=== PATIENT | female | born 1955 | race American Indian/Alaskan Native ===

== ENCOUNTER 2020-08-17 06:54 | Emergency (ER) | payer SELFPAY ==
[2020-08-17] MEDS ORDERED: dexAMETHasone 4 MG/ML VIAL IM STA (08:56)
[2020-08-17] MEDS ORDERED: KETOROLAC 30 MG/1 ML INJ IM ONE (08:56)
--- NOTE | 2020-08-17 09:01 | Emergency Department Report ---
ED General Adult HPI - General Chief complaint: Back Pain/Injury Stated complaint: BACK PAIN Time Seen by Provider: 08/17/20 08:26 Source: patient Mode of arrival: Ambulatory Limitations: Language Barrier - History of Present Illness Initial comments: 65-year-old -Turkish female patient presents with complaints of left lower back pain radiating down her left leg today. Patient states this pain has been intermittent since that she had a fall a couple months ago. Patient states that the time she did see her doctor and had x-rays done that were negative for any abnormalities. She states she was treated with medications and her pain went away. She denies any new injuries, weakness in her legs, numbness/tingling, difficulty with ambulation, or loss of bladder/bowel control. No history of cancer per patient. She describes the pain as burning and shooting and rates it as 10/10 in severity. She denies trying any OTC medication. No other past medical history per patient. - Related Data Previous Rx's Medication Instructions Recorded Last Taken Type Diclofenac Sodium 50 mg PO TID PRN #15 tablet. 08/17/20 Unknown Rx methOCARBAMOL [Robaxin TAB] 500 mg PO BID PRN #10 tab 08/17/20 Unknown Rx Allergies Allergy/AdvReac Type Severity Reaction Status Date / Time No Known Allergies Allergy Unverified 08/17/20 07:10 ED Review of Systems ROS: Stated complaint: BACK PAIN Other details as noted in HPI Constitutional: denies: chills, fever, malaise Genitourinary: denies: urgency, dysuria, frequency, hematuria Musculoskeletal: back pain. denies: joint swelling, arthralgia Skin: denies: change in color Neurological: denies: numbness, abnormal gait ED Past Medical Hx - Past Medical History Previous Medical History?: No - Surgical History Past Surgical History?: No Hx Coronary Stent: No Hx Open Heart Surgery: No Hx Pacemaker: No Hx Internal Defibrillator: No Hx Cholecystectomy: No Hx Appendectomy: No Hx Breast Surgery: No - Social History Smoking Status: Never Smoker Substance Use Type: None - Medications Home Medications: Home Medications Medication Instructions Recorded Confirmed Last Taken Type Diclofenac Sodium 50 mg PO TID PRN #15 tablet. 08/17/20 Unknown Rx methOCARBAMOL [Robaxin TAB] 500 mg PO BID PRN #10 tab 08/17/20 Unknown Rx ED Physical Exam - General Limitations: Language Barrier General appearance: alert, in no apparent distress - Head Head exam: Present: atraumatic, normocephalic - Eye Eye exam: Present: normal appearance - Neck Neck exam: Present: full ROM - Respiratory Respiratory exam: Absent: respiratory distress - Cardiovascular Cardiovascular Exam: Present: regular rate - Extremities Exam Extremities exam: Present: full ROM - Expanded Back Exam Expanded Back exam: Absent: saddle anesthesia Back exam: Sciatic Notch Tenderness: Left, Positive Straight Leg Raise: Left - Neurological Exam Neurological exam: Present: alert, oriented X3, normal gait. Absent: motor sensory deficit - Psychiatric Psychiatric exam: Present: normal affect, normal mood ED Course Vital Signs 08/17/20 06:57 Temperature 97.8 F Pulse Rate 94 H Respiratory 16 Rate Blood Pressure 166/86 O2 Sat by Pulse 100 Oximetry ED Medical Decision Making - Medical Decision Making 65-year-old -Turkish female patient presents with complaints of left lower back pain radiating down her left leg today. Patient states this pain has been intermittent since that she had a fall a couple months ago. Patient states that the time she did see her doctor and had x-rays done that were negative for any abnormalities. She states she was treated with medications and her pain went away. She denies any new injuries, weakness in her legs, numbness/tingli ng, difficulty with ambulation, or loss of bladder/bowel control. No history of cancer per patient. She describes the pain as burning and shooting and rates it as 10/10 in severity. She denies trying any OTC medication. No other past medical history per patient. History and physical consistent with sciatica. Patient given Decadron and Toradol. Patient instructed on stretching and follow-up with her primary care doctor in 3 days. Signs and symptoms that should prompt immediate return to the emergency department were discussed in detail with patient who verbalizes understanding. Patient is well-appearing, her vitals are normal, she is stable for discharge home. Critical care attestation.: If time is entered above; I have spent that time in minutes in the direct care of this critically ill patient, excluding procedure time. ED Disposition Clinical Impression: Left sided sciatica Disposition: DC- TO HOME OR SELFCARE Is pt being admited?: No Condition: Stable Instructions: Sciatica Prescriptions: Diclofenac Sodium 50 mg PO TID PRN #15 tablet.dr PRN Reason: pain methOCARBAMOL [Robaxin TAB] 500 mg PO BID PRN #10 tab PRN Reason: muscle tightness Referrals: PRIMARY CARE, [Referring] - 2-3 Days [facility] [Provider Group] - 2-3 Days
[2020-08-17 09:26] VITALS: BP 155/79
== END 2020-08-17 10:24 | disposition home or self-care (01) ==
LOC: ED 06:54
DX: M54.42 Lumbago with sciatica, left side (principal); Z79.899 Other long term (current) drug therapy
CPT/HCPCS: 96372; 99282; J1100; J1885